=== PATIENT | male | born 1955 | race Caucasian/White ===

== ENCOUNTER 2022-03-01 08:09 | Day surgery (SDC) | payer BC, SELFPAY ==
--- NOTE | 2022-02-28 10:23 | HO.ANESPROP2 ---
Documented by User: Nicolle Dumont NP 02/28/22 10:24 HPI - Anesthesia Eval Consult details Narrative: 66yo M for Upper Endoscopy [facility] Past Medical History Medical History Kothari esophagus Colon polyps Lumbosacral disc disease Seasonal allergic rhinitis Surgical History Surgical History History of colonoscopy History of esophagogastroduodenoscopy (EGD) History of hernia repair History of shoulder surgery History of tonsillectomy and adenoidectomy Social History Social History Patient Tobacco Use Status: Never used Tobacco Are you DNR?: No Advance Directives: No Advance Directives Information Provided: Yes Recently lost weight without trying: No Nutrition Risks: No Nutritional Risk Poor oral hygiene: No Meds Allergies Allergy/AdvReac Type Severity Reaction Status Date / Time No Known Allergies Allergy Verified 02/28/22 09:30 Home Medications Medication Instructions Recorded Confirmed Last Taken Type calcium 1 tab PO DAILY 02/28/22 02/28/22 02/28/22 History esomeprazole magnesium 20 mg 20 mg PO DAILY 02/28/22 02/28/22 02/28/22 History capsule,delayed release (Nexium) fluticasone propionate 110 1 puff inhalation DAILY 02/28/22 02/28/22 03/01/22 History mcg/actuation HFA aerosol inhaler multivitamin 1 tab PO DAILY 02/28/22 02/28/22 02/28/22 History Exam Exam Date and Time: February 28, 2022 102 Assessment and Plan Assessment Anesthesia Assessment: Chart Reviewed Documented by User: Vaishali Soler MD 03/01/22 10:42 [facility] Past Medical History Medical History Kothari esophagus Colon polyps Lumbosacral disc disease Seasonal allergic rhinitis Surgical History Surgical History History of colonoscopy History of esophagogastroduodenoscopy (EGD) History of hernia repair History of shoulder surgery History of tonsillectomy and adenoidectomy History of Problems with Anesthesia: No Social History Social History Patient Tobacco Use Status: Never used Tobacco Are you DNR?: No Advance Directives: No Advance Directives Information Provided: Yes Recently lost weight without trying: No Nutrition Risks: No Nutritional Risk Poor oral hygiene: No Meds Allergies Allergy/AdvReac Type Severity Reaction Status Date / Time No Known Allergies Allergy Verified 02/28/22 09:30 Home Medications Medication Instructions Recorded Confirmed Last Taken Type calcium 1 tab PO DAILY 02/28/22 02/28/22 02/28/22 History esomeprazole magnesium 20 mg 20 mg PO DAILY 02/28/22 02/28/22 02/28/22 History capsule,delayed release (Nexium) fluticasone propionate 110 1 puff inhalation DAILY 02/28/22 02/28/22 03/01/22 History mcg/actuation HFA aerosol inhaler multivitamin 1 tab PO DAILY 02/28/22 02/28/22 02/28/22 History Exam Airway Mallampati Class: II TM Dist: >3cm Neck ROM: Full Loose/Missing/Broken Teeth: No Heart: RRR Lungs: CTA Assessment and Plan Assessment Anesthesia Assessment: Anesthesia Plan Discussed Final Anesthetic Review History of Problems with Anesthesia: No NPO: Yes ASA Class: II Final Preanesthetic Review: Meds/Allgs Chart Reviewed, Consent Obtained/Reviewed and Anes Risks/Benef Reviewed Patient Risk: Low Procedure Risk: Intermediate Anesthetic Plan Anesthetic Plan: MAC: Disposition: Standard PACU
[2022-03-01 08:17] VITALS: BMI 28.5
[2022-03-01 08:31] VITALS: BP 151/93; PULSE 54; RESP 18; TEMP 36.1; O2SAT 98
[2022-03-01] MEDS: Lactated Ringers 1,000 ML 100 ML IVCONT (08:43)
[2022-03-01 08:49] LABS: COVID-19 Test Negative (Negative)
--- NOTE | 2022-03-01 09:46 | MHC.SHP ---
Pre-Procedural Eval Section A Date of Service: 03/01/22 The patient is an INPATIENT: No Changes since office visit: No Cold of Flu in the past 2 weeks, No New Medical Problems, No Changes in Medication and No Patient answered all questions The History & Physical has been completed within 30 days and I have reviewed it.: Yes Section B Chief Complaint: Kothari's esophagus without dysplasia Allergies: Allergies Allergy/AdvReac Type Severity Reaction Status Date / Time No Known Allergies Allergy Verified 02/28/22 09:30 Plan I have reviewed the history and physical and performed a pertinent physical examination on my patient. No changes have occurred unless specified.
--- NOTE | 2022-03-01 10:14 | PM.OP ---
Brief Operative Note Date of Service: 03/01/22 Pre-op diagnosis: barretts Post-op diagnosis: same Procedure: upper endoscopy Surgeon: Smooth Ruiz Anesthesia: MAC Was an Director Of Employee Development used for this Procedure?: No Estimated blood loss (mL): 2 Pathology: other Condition: stable Disposition: PACU
[2022-03-01 10:15] VITALS: BP 90/60; PULSE 53; RESP 20; TEMP 36.2; O2SAT 99
[2022-03-01 10:30] VITALS: BP 115/73; PULSE 49; RESP 18; TEMP 36.2; O2SAT 98
--- NOTE | 2022-03-01 11:04 | OP_ITS ---
SURGEON: Smooth Ruiz MD PREOPERATIVE DIAGNOSIS: POSTOPERATIVE DIAGNOSIS: PROCEDURE PERFORMED: EGD with biopsy INDICATIONS: Barretts esophagus ESTIMATED BLOOD LOSS: COMPLICATIONS: ANESTHESIA: MAC ASSISTANTS: SPECIMENS: DESCRIPTION OF PROCEDURE: History and physical performed. The procedure was performed on 03/01/22. Informed consent was obtained. The patient was placed in the left lateral decubitus position. The Olympus video gastroscope was introduced into the esophagus, stomach, and duodenum. Examination was performed. The scope was removed. He tolerated the procedure well and was taken to recovery area in stable condition. FINDINGS: Esophagus: The esophagus showed no esophagitis. There was an irregular EG junction. There were no raised lesions or ulcerated areas. Biopsies were obtained from the EG junction. Stomach: The stomach showed no evidence of masses or ulcers. There were several benign-appearing gastric polyps measuring less than 10 mm in the body. Two of these were biopsied. Duodenum: The bulb and second portion were normal. IMPRESSION: Kothari esophagus. RECOMMENDATION: Follow up the biopsy results. MD LING Smith/QUINL / [id number] MTDD
== END 2022-03-01 11:14 | disposition home or self-care (01) ==
PROVIDERS: Anesthesiology; PCP Family Medicine; Visit Provider Internal Medicine Gastroenterology
PROC: 0DJ08ZZ Inspection of Upper Intestinal Tract, Via Natural or Artificial Opening Endoscopic (ICD-10-PCS; CPT 43235; principal; 2022-03-01 09:30)
DX: K22.70 Barrett's esophagus without dysplasia (principal); K31.7 Polyp of stomach and duodenum; K21.9 Gastro-esophageal reflux disease without esophagitis; J30.2 Other seasonal allergic rhinitis; Z79.51 Long term (current) use of inhaled steroids; Z79.899 Other long term (current) drug therapy; Z20.822 Contact with and (suspected) exposure to COVID-19
CPT/HCPCS: 43239; 87635; 88305; 88342

== ENCOUNTER 2024-04-06 07:15 | Day surgery (SDC) | payer BC, SELFPAY ==
[2024-04-02 12:33] VITALS: BMI 28.4
[2024-04-06 07:56] VITALS: BP 159/84; PULSE 61; RESP 18; TEMP 36.7; O2SAT 99
[2024-04-06] MEDS: Lactated Ringers 1,000 ML 100 ML IVCONT (08:09)
--- NOTE | 2024-04-06 08:30 | HO.ANESPROP2 ---
Documented by User: Nicolle Dumont NP 04/05/24 08:27 HPI - Anesthesia Eval Consult details Narrative: 68yo M for Colonoscopy [facility] Past Medical History Medical History Cataracts, both eyes Hearing loss Lumbosacral disc disease Colon polyps Kothari esophagus Seasonal allergic rhinitis Surgical History Surgical History History of tonsillectomy and adenoidectomy History of shoulder surgery History of hernia repair History of esophagogastroduodenoscopy (EGD) History of colonoscopy History of Problems with Anesthesia: No Social History Social History (Updated 04/02/24 @ 12:32 by Priyanka Watkins RN) Household Members: Spouse Are you a primary intensive care medicine specialist to a significant other at home: No Do you presently have visiting nurse or other home services: No Patient Tobacco Use Status: Never used Tobacco Use of substances other than those prescribed or required for medical reasons: No Have you been hit, kicked, punched, or otherwise hurt by someone within the past year? If so, by whom?: No Are you DNR?: No Advance Directives: No Advance Directives Information Provided: Yes Recently lost weight without trying: No Nutrition Risks: No Nutritional Risk Meds Allergies Allergy/AdvReac Type Severity Reaction Status Date / Time No Known Allergies Allergy Verified 04/06/24 07:40 Home Medications ?Medication ?Instructions ?Recorded ?Confirmed ?Last Taken ?Type esomeprazole magnesium 20 mg 20 mg PO DAILY 02/28/22 04/02/24 02/28/22 History capsule,delayed release (Nexium) fluticasone propionate 110 1 puff inhalation DAILY 02/28/22 04/02/24 03/01/22 History mcg/actuation HFA aerosol inhaler multivitamin 1 tab PO DAILY 02/28/22 04/02/24 02/28/22 History calcium carbonate (Calcium 600) 600 mg PO DAILY 04/02/24 04/02/24 Unknown History Exam Height,Weight and Vital Signs: Height 5 ft 6 in Weight 79.832 kg Assessment and Plan Assessment Anesthesia Assessment: Chart Reviewed Final Anesthetic Review History of Problems with Anesthesia: No Documented by User: Radha Dewitt DO 04/06/24 08:32 [facility] Past Medical History Medical History Cataracts, both eyes Hearing loss Lumbosacral disc disease Colon polyps Kothari esophagus Seasonal allergic rhinitis Family History Family history of problems with anesthesia: No Surgical History Surgical History History of tonsillectomy and adenoidectomy History of shoulder surgery History of hernia repair History of esophagogastroduodenoscopy (EGD) History of colonoscopy History of Problems with Anesthesia: No Social History Social History (Updated 04/02/24 @ 12:32 by Priyanka Watkins RN) Household Members: Spouse Are you a primary intensive care medicine specialist to a significant other at home: No Do you presently have visiting nurse or other home services: No Patient Tobacco Use Status: Never used Tobacco Use of substances other than those prescribed or required for medical reasons: No Have you been hit, kicked, punched, or otherwise hurt by someone within the past year? If so, by whom?: No Are you DNR?: No Advance Directives: No Advance Directives Information Provided: Yes Recently lost weight without trying: No Nutrition Risks: No Nutritional Risk Meds Allergies Allergy/AdvReac Type Severity Reaction Status Date / Time No Known Allergies Allergy Verified 04/06/24 07:40 Home Medications ?Medication ?Instructions ?Recorded ?Confirmed ?Last Taken ?Type esomeprazole magnesium 20 mg 20 mg PO DAILY 02/28/22 04/02/24 02/28/22 History capsule,delayed release (Nexium) fluticasone propionate 110 1 puff inhalation DAILY 02/28/22 04/02/24 03/01/22 History mcg/actuation HFA aerosol inhaler multivitamin 1 tab PO DAILY 02/28/22 04/02/24 02/28/22 History calcium carbonate (Calcium 600) 600 mg PO DAILY 04/02/24 04/02/24 Unknown History Exam Exam Date and Time: 04/06/24 0830 Height,Weight and Vital Signs: Vital Signs Temperature 98.1 F 04/06/24 07:56 Pulse Rate 61 04/06/24 07:56 Respiratory Rate 18 04/06/24 07:56 Blood Pressure 159/84 H 04/06/24 07:56 Pulse Oximetry 99 04/06/24 07:56 Oxygen Delivery Method Room Air 04/06/24 07:56 Temperature 98.1 F 04/06/24 07:56 Pulse Rate 61 04/06/24 07:56 Respiratory Rate 18 04/06/24 07:56 Blood Pressure 159/84 H 04/06/24 07:56 Pulse Oximetry 99 04/06/24 07:56 Oxygen Delivery Method Room Air 04/06/24 07:56 Height 5 ft 6 in Weight 79.832 kg Airway Mallampati Class: II TM Dist: >3cm Neck ROM: Full Loose/Missing/Broken Teeth: No (patient denies any loose or broken teeth) Heart: S1S2 Lungs: CTAB Assessment and Plan Assessment Anesthesia Assessment: Anesthesia Plan Discussed and Chart Reviewed Final Anesthetic Review Family History of Problems with Anesthesia: No History of Problems with Anesthesia: No NPO: Yes ASA Class: II Final Preanesthetic Review: No Changes in Pt Med Stat, Meds/Allgs Chart Reviewed, Consent Obtained/Reviewed and Anes Risks/Benef Reviewed Patient Risk: Low Procedure Risk: Low Anesthetic Plan Anesthetic Plan: MAC: and Agree w/ Assess. and Plan Disposition: Standard PACU
--- NOTE | 2024-04-06 08:33 | P.HPSUR_ITS ---
Pre-Procedural Eval Section A - 24 Hr Update-Section A only Date of Service: 04/06/24 Section B - Complete if H&P > 30 days Chief Complaint: Encounter for screening for malignant neoplasm of Details of Present Illness: see H&P no changes Relevant Family History (Specify if Yes): No Relevant Social History: None Present Medications: see Short Stay Collaborative assessment Medical History: No relevant PMH History of Previous Operations: No relevant previous surgery Allergies: Allergies Allergy/AdvReac Type Severity Reaction Status Date / Time No Known Allergies Allergy Verified 04/06/24 07:40 Review of Systems Sugical H&P ROS: Negative: Constitution, Cardiovascular, Respiratory, Neurological, Psychiatric, Hem-Onc, Allergic/Immunologic, Gastrointestinal, Genitourinary, Musculoskeletal, Integumentary, Endocrine and Eyes/Ears/No se/Throat Exam Surgical H&P Exam: Normal: HEENT, Normal: Heart, Normal: Lungs, Normal: Extremities, Normal: Abdomen, Normal: Skin and Normal: Neurological Plan Diagnosis/Plan: Unchanged I have reviewed the history and physical and performed a pertinent physical examination on my patient. No changes have occurred unless specified. Time Spent With Patient Time: Total time managing care of this patient today ____ minutes.
[2024-04-06 09:04] VITALS: BP 87/54; PULSE 53; RESP 16; TEMP 36.2; O2SAT 96
--- NOTE | 2024-04-06 09:13 | OP_ITS ---
DATE OF SERVICE: 04/06/2024 SURGEON: Smooth Ruiz MD INDICATIONS: Colon cancer screening and prior history of adenomatous colon polyps. PREOPERATIVE DIAGNOSIS: POSTOPERATIVE DIAGNOSIS: PROCEDURE PERFORMED: Colonoscopy to the terminal ileum. ESTIMATED BLOOD LOSS: COMPLICATIONS: ANESTHESIA: Monitored anesthesia care. ASSISTANTS: SPECIMENS: DESCRIPTION OF PROCEDURE: A history and physical was performed. The risks and benefits of the procedure were explained to the patient. Informed consent was obtained. The patient was placed in the left lateral decubitus position. A digital rectal exam was performed and was found to be normal. The Olympus pediatric video colonoscope was introduced into the rectum and advanced to the cecum. The cecum was identified by transillumination, palpation, and identification of ileocecal valve, examination was performed. The scope was removed. He tolerated the procedure well and was returned to recovery area in stable condition. FINDINGS: The terminal ileum was normal. The visualized colonic mucosa was normal. The quality of the prep was good. There was very mild sigmoid diverticulosis. Retroflexed examination showed some moderate-sized internal hemorrhoids. No polyps were identified. IMPRESSION: Normal colonoscopy. RECOMMENDATIONS: 1. Follow up as needed. 2. Repeat colonoscopy is recommended in 10 years for average-risk individuals. MD LING Smith/KYLEE / [id number]
[2024-04-06 09:19] VITALS: BP 98/65; PULSE 49; RESP 16; TEMP 36.2; O2SAT 99
--- OUTSIDE RECORDS SUMMARY | 2024-04-07 18:32 | XMS_ITS | Continuity of Care Document ---
Author Organization [facility] Address [address] [place] [address]- Care Team Providers Care Program Admin Name Role Phone Irving CAMPA, Shannon Hernandez Primary Care Physician [phone] Encounter [facility] NBR [id number] Date(s): 03/03/24 - 03/10/24 [facility] [address] [place] [id number]- Attending Physician: Shannon Villatoro MD Referring Physician: Joselito Mendoza MD Encounter Type: Office Visit Allergies, Adverse Reactions, Alerts Substance Criticality Severity Reaction Reaction Severity Status Pollen Active Immunizations Given and Recorded Vaccine Date Status Refusal Reason influenza virus vaccine, inactivated 03/01/24 Zaheer rded influenza virus vaccine, inactivated 03/06/23 Zaheer rded influenza virus vaccine, inactivated 1 02/18/18 Gi savanna influenza virus vaccine, inactivated 2 02/03/17 Gi savanna influenza virus vaccine, inactivated 02/06/16 Give n influenza virus vaccine, inactivated 03/06/15 Give n influenza virus vaccine, inactivated 02/16/14 Zaheer rded influenza virus vaccine, inactivated 02/15/13 Zaheer rded SARS-CoV-2(COVID-19)mRNA-LNP vac([id number]) 03/01/24 Recorded SARS-CoV-2(COVID-19)mRNA-LNP vac([id number]) 02/15/23 Recorded pneumococcal 23-valent vaccine 3 10/22/23 Given pneumococcal 23-valent vaccine 05/20/16 Given tetanus/diphtheria/pertussis, acel(Tdap) 10/22/23 Recorded RSV vaccine, preF A-preF B, recombinant 01/31/23 R ecorded [id number] 12y+ bivalent booster vax 11/20/22 Recorded [id number] 12y+ bivalent booster vax 03/07/22 Recorded pneumococcal 13-valent vaccine 4 10/10/22 Given pneumococcal 13-valent vaccine 05/19/15 Given SARS-CoV-2 mRNA ([id number]) vax 09/26/21 Recorded SARS-CoV-2 (COVID-19) mRNA BNT-162b2 vac 04/02/21 Recorded SARS-CoV-2 (COVID-19) mRNA BNT-162b2 vac 08/16/20 Recorded SARS-CoV-2 (COVID-19) mRNA BNT-162b2 vac 07/26/20 Recorded zoster vaccine, inactivated 05/05/20 Recorded zoster vaccine, inactivated 02/18/20 Recorded Influenza Virus Vaccine (oldterm) 02/08/20 Recorde d Influenza Virus Vaccine (oldterm) 02/26/19 Recorde d Adacel (Tdap) (oldterm) 5 09/29/17 Given Tetanus Toxoid 05/12/06 Recorded 1Result Comment: [02/18/2018] [facility] [id number] 2Result Comment: [02/03/2017] [facility] [id number] 3Result Comment: [facility] [id number] 4Result Comment: [facility] [id number] 5Result Comment: [09/29/2017] [facility]: [id number] Medications Calcium 600 +D By Mouth, 0 Refills, Maintenance, 05/20/16 8:46:04 AM EST Start Date: 05/20/16 Status: Ordered Repeat number: 1 Daily Multi 1 tablet, By Mouth, Daily, 0 Refills, Maintenance, 11/29/15 8:23:23 AM EDT Start Date: 11/29/15 Status: Ordered Repeat number: 1 Fluticasone Nasal USE 2 SPRAYS IN EACH NOSTRIL ONCE DAILY, 04/22/13 5:00:00 AM EST Start Date: 04/22/13 Status: Ordered Repeat number: 1 Metamucil 3.4 gm/5.2 gm oral powder for reconstitution = 3.4 Gm, By Mouth, Daily, 0 Refills, Maintenance, 10/22/23 7:41:00 AM EDT, Partial fill upon patient request if the prescription is for a schedule II opioid drug. Start Date: 10/22/23 Status: Ordered Repeat number: 1 naproxen 500 mg oral delayed release tablet TAKE 1 TABLET TWICE DAILY NEEDED., 04/22/13 5:00:00 AM EST Start Date: 04/22/13 Status: Ordered Repeat number: 1 NexIUM OTC 20 mg oral delayed release capsule 1 capsule = 20 mg, By Mouth, Daily, 0 Refills, Maintenance, 05/19/15 8:53:13 AM EST, brand name only Start Date: 05/19/15 Status: Ordered Repeat number: 1 Problem List Condition Confirmation Course Effective Dates Status H ealth Status Informant Kothari's esophagus Confirmed Active Chronic hyperglycemia Confirmed Active Disc degeneration, lumbosacral Confirmed Active Palmar fascial fibromatosis [dupuytren] Confirmed Active Vital Signs Most recent to oldest [Reference Range]: 1 Height 168 cm (03/03/24 12:45 PM) Weight 80.0 kg (03/03/24 12:45 PM) Oxygen Saturation [94-100 %] 97 % (03/03/24 12:45 PM) Pulse Rate [55-90 bpm] 55 bpm (03/03/24 12:45 PM) Body Mass Index [18.5-24.99 kg/m2] 28.34 kg/m2 *H* (03/03/24 12:45 PM) Blood Pressure [90-138/55-84 mm Hg] 127/ 69mm Hg (03/03/24 12:45 PM) Temperature [96.8-100.4 DegF] 96.6 DegF *L* (03/03/24 12:45 PM) Mode of Delivery (Oxygen) Room air (03/03/24 12:45 PM) Blood pressure sites Arm, left (03/03/24 12:45 PM) Temperature Route Temporal (03/03/24 12:45 PM) Weight Obtained Via Standing scale (03/03/24 12:45 PM) Social History Social History Type Response Smoking Status Never (less than 100 in lifetime); Tobacco user in household: No;Never; Previous treatment: None; Interested in cessation: No entered on: 09/30/18 Sex Sex Representation Male (finding) Note * Shawnee Craig: PERFORM Event Display: Patient Education/Instruction Authored Date: [id number] Ambulatory Adult Visit Summary [facility] [address] [address] Name: LALO VEGA : 1955?? Visit: 03/03/2024 12:37?? Ambulatory Visit Instructions ?? Your Care Team Primary Care Provider Shannon Villatoro MD? This Visit Provider Shannon Villatoro MD Vitals Signs Temperature:??96.6 DegF??Low Height: 168 cm Pulse Rate: 55 bpm Weight: 80 kg Systolic Blood Pressure: 127 mm Hg Body Mass Index:??28.34 kg/m2??High Diastolic Blood Pressure: 69 mm Hg Body surface area: 1.93 Oxygen Saturation: 97 % ?? Medications The list below reflects the information in our records and provided by you today along with any changes made during this visit. Please continue your medications until treatment is completed or stopped by your provider. If this is different from the information you have or there are other questions,please contact the prescribing provider. What How Much When Instructions Unchanged Calcium And Vitamin D Combination (Calcium 600 +D) Oral Unchanged Esomeprazole (NexIUM OTC 20 mg oral delayed release capsule) 1 capsule Oral Daily Unchanged Fluticasone Nasal USE 2 SPRAYS IN EACH NOSTRIL ONCE DAILY ?? Unchanged Multivitamin With Minerals (Daily Multi) 1 tab(s) Oral Daily Unchanged Naproxen (naproxen 500 mg oral delayed release tablet) TAKE 1 TABLET TWICE DAILY NEEDED. ?? Unchanged Psyllium (Metamucil 3.4 gm/ 5.2 gm oral powder for reconstitution) 3.4 gram Oral Daily Medications and Immunizations Administered Medications Given During Visit No medications given during this visit.?? Allergies (NKA means No Known Allergies) Pollen Common Emergency Awareness Tips IS IT A STROKE? Act FAST and Check for these signs: FACE Does the face look uneven? ARM Does one arm drift down? SPEECH Does their speech sound strange? TIME Call at any sign of stroke ?? Heart Attack Signs Chest discomfort: Most heart attacks involve discomfort in the center of the chest and lasts more than a few minutes, or goes away and comes back. It can feel like uncomfortable pressure, squeezing, fullness or pain. Discomfort in upper body: Symptoms can include pain or discomfort in one or both arms, back, neck, jaw or stomach. Shortness of breath: With or without discomfort. Other signs: Breaking out in a cold sweat, nausea, or lightheaded. Remember, MINUTES DO MATTER. If you experience any of these heart attack warning signs, call to get immediate medical attention! ?? Smoking can increase your chances of developing chronic health problems and can cause harmful effects to other family members in your house. If you smoke, you are strongly encouraged to quit. Please call [facility] at [phone] or [phone] ([phone]) or log in to [email or web address] for referrals to smoking cessation programs. ?? The National Suicide Prevention Hotline is available 18/11 if you or someone you know needs to find a reason to keep living. By calling 4-060-688-R[employer] V[employer] (6628) you'll be connected to a skilled, trained counselor at a crisis center in your area. [facility] Portal You can view and manage your care through the patient portal or by using a health care ninfa of your choosing. [employer] is a website that allows you to securely view your medical information including your hospital discharge summary, office visit summaries, medications and follow-up visits. You can also request appointments, renew medications, and request access to your medical information using a health care ninfa of your choosing, or just ask a question. You can enroll at [email or web address] or register during your next office visit. [facility], in keeping with [facility] guidance, no longer requires face masks for staff, patientsor visitors in most situations. Similiar to time spent indoors at other locations, there is the chance that you were exposed to repiratory viruses during your time with us (such as flu or COVID-19). If you develop symptoms concerning for a viral respiratory infection, please seek testing (and treatment if indicated) from your medical provider or home test kit. ?? Disclaimer: The information provided is of a general nature and is intended to be used in conjunction with the recommendations and advice of your health care practitioner. Every effort has been made to ensure that the information provided is accurate and complete at the time it is provided to you however, as your needs change, or, as new information becomes available, different or additional instructions may be required. ?? If you have questions, please consult with your primary care provider or pharmacist, as appropriate. This information is not intended to serve as substitution for assessment and evaluation by a qualified health care provider. If you do not have a primary care provider, you may find a [facility] provider by calling [facility] at [phone]. Patient Care team information Care Team Personnel Name: Shannon Villatoro MD Position: [facility] Physician - Primary Care Member Role: PCP Address: [address] [place] [address] Telecom: Care Team Related Persons Name: ROSALBA GARSIA Insurance Providers Guarantor name: [facility] Information #: 1 Payer: [employer]MO [employer] Member Number: [id number] Policy Number: NA Group Number: [id number] Health Plan Information #: 2 Payer: HMO [employer] Member Number: [id number] Policy Number: NA Group Number: NA
--- OUTSIDE RECORDS SUMMARY | 2024-04-07 18:32 | XMS_ITS | Continuity of Care Document ---
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 Name Role Phone Irving CAMPA, Shannon M Primary Care Physician Encounter [facility] Date(s): 03/03/24 - 04/02/24 [facility] [address] [place] [address]- Attending Physician: Steven Greenfield Admitting Physician: AdmSteven maher Referring Physician: AdmtrSteven Encounter Type: Triage Allergies, Adverse Reactions, Alerts Substance Criticality Severity [...] virus vaccine, inactivated 02/15/13 Zaheer rded SARS-CoV-2(COVID-19)mRNA-LNP vac([id number]) 03/01/24 Recorded SARS-CoV-2(COVID-19)mRNA-LNP vac([id number]) 02/15/23 Recorded pneumococcal 23-valent vaccine 3 10/22/23 Given pneumococcal 23-valent vaccine 05/20/16 Given tetanus/diphtheria/pertussis, acel(Tdap) 10/22/23 Recorded RSV vaccine, preF A-preF B, recombinant 01/31/23 R ecorded [id number] 12y+ bivalent booster vax 11/20/22 Recorded [id number] 12y+ bivalent booster vax 03/07/22 Recorded pneumococcal 13-valent vaccine 4 10/10/22 Given pneumococcal 13-valent vaccine 05/19/15 Given SARS-CoV-2 mRNA (vksurpt-gfgv-kumaw) vax 09/26/21 Recorded SARS-CoV-2 (COVID-19) mRNA BNT-162b2 vac 04/02/21 Recorded SARS-CoV-2 (COVID-19) mRNA BNT-162b2 vac 08/16/20 Recorded SARS-CoV-2 (COVID-19) mRNA BNT-162b2 vac 07/26/20 Recorded zoster vaccine, inactivated 05/05/20 Recorded zoster vaccine, inactivated 02/18/20 Recorded Influenza Virus Vaccine (oldterm) 02/08/20 Recorde d Influenza Virus Vaccine (oldterm) 02/26/19 Recorde d Adacel (Tdap) (oldterm) 5 09/29/17 Given Tetanus Toxoid 05/12/06 Recorded 1Result Comment: [02/18/2018] [facility] [id number] 2Result Comment: [02/03/2017] [facility] [phone] 3Result Comment: [facility] [id number] 4Result Comment: formerly [facility] [id number] 5Result Comment: [09/29/2017] 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 Social History Social History Type Response Smoking Status Never (less than 100 in lifetime); Tobacco user in household: No;Never; Previous treatment: None; Interested in cessation: No entered on: 09/30/18 Sex Sex Representation Male (finding) Patient Care team information Care Team Personnel Name: Irving CAMPA, Shannon Hernandez Position: [facility] Physician - Primary Care Member Role: PCP Address: [address] [place] [address] [place] [address]- Telecom: Care Team Related Persons Name: ROSALBA GARSIA Insurance Providers Guarantor name: LALO [facility] Plan Information #: 1 Payer: O [employer]WORK Member Number: NA Policy Number: NA Group Number: NA
--- OUTSIDE RECORDS SUMMARY | 2024-04-07 18:32 | XMS_ITS ---
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
--- OUTSIDE RECORDS SUMMARY | 2024-04-07 18:33 | XMS_ITS | Patient Health Record ---
Author Organization [facility] Address [address] [place] [address] Care Team Providers Care High School Coordinator Name Role Phone Irving CAMPA, Shannon Primary Care Provider Unavailab Smooth Noel Jr Unavailable ALLERGIES No Known Allergies REASON FOR REFERRAL Referring Provider First Name Shannon Referring Provider Last Name Irving Referring Provider Speciality Internal M edicine Referred Organization [facility] Referred Provider Smooth Ruiz Jr Referred Address [address],[place], [place],[address], Referred Provider Specialty Gastroentero logy General Notes Leilani Lerma 024 04:15:22 PM EDT > requested an o blue referral from Dr. Schaffer's office for visit with Dr. Ruiz on 03-08-2024 (said 01-31-2024) [phone] Referral Priority Routine MEDICATIONS Medication SIG (Take, Route, Frequency, Duration) Notes Start Date End Date Status MiraLax (colon prep) 17 GM/SCOOP mixed with Gatorade or Crystal Light Orally begin at 5:00 p.m. the day before the procedure for 1 day 03/08/2024 Active NexIUM 20 MG 1 capsule Orally Onc e a day for 30 day(s) Active Multivitamin Active Fluticasone Propionate HFA 110 MCG/ACT 1 puff in each nostril Inhalation once a day Active Metamucil 0.36 GM as directed Orally Active Calcium Active IMMUNIZATIONS Vaccine Route Administration Date Status Comme nts Influenza Unknown 01/23/2022 Administered Influenza Unknown 02/10/2024 Administered SOCIAL HISTORY Tobacco Use: Social History Observation Description Date Details (start date - stop date) Never Smoker NA - NA Sex Assigned At : Social History Observation Description Sex Assigned At Unknown Tobacco Use/Smoking Question Answer Notes Patient is a nonsmoker Alcohol Screen Question Answer Notes Did you have a drink contain ing alcohol in the past year? Yes How often did you have a dri nk containing alcohol in the past year? 4 or more times a week (4 points) How many drinks did you have on a typical day when you were drinking in the past year? 1 or 2 drinks (0 point) Points 4 Interpretation Positive PROBLEMS Problem Type ICD Code Onset Dates Problem Status W/U Status Risk SNOMED Code Notes Problem Kothari's esophagus without dysplasia (K22.70) Active confirmed 373572745 Problem Colon cancer screening (Z12.11) Active confirmed 117161906 Problem Kothari esophagus (K22.70) Active confirmed Kothari esophagus (811411213) VITAL SIGNS Temperature 97.9 degrees Fahrenheit 03/08/2024 Blood pressure diastolic 00 mm Hg 03/08/2024 Height 66 in 03/08/2024 Blood pressure systolic 000 mm Hg 03/08/2024 Weight 176 lb 4 oz lbs 03/08/2024 BMI 28.44 kg/m2 03/08/2024 Encounters Encounter Location Date Provider Diagnosis [facility] Outpatient [address] [place], [place] [phone] 04/06/2024 Smooth Ruiz Jr [facility] [address] [place] [address] 03/08/2024 Smooth Ruiz Jr Colon cancer screening Z12.11 and Kothari's esophagus without dysplasia K22.70 ASSESSMENTS Encounter Date Diagnosis Assessment Notes Treatment Notes Treatment Clinical Notes 03/08/2024 Colon cancer screening (ICD-10 - Z12.11) Colonoscopy material was printed 03/08/2024 Kothari's esophagus without dysplasia (ICD-10 - K22.70) PLAN OF TREATMENT Future Test Test Name Order Date UPPER GI ENDOSCOPY 01/30/2022 COLONOSCOPY 03/08/2024 Insurance Providers Payer Name Payer Address Payer Phone Subscriber Number Group Number Insured Name Patient Relationship to Insured Coverage Start Date Coverage End Date [facility] [employer] [facility] [address] [place] [address] [id number] LALO VEGA Self - patient is the insured MEDICAL (GENERAL) HISTORY Medical History History ICD Code Seasonal allergic rhinitis Kothari's esophagus, EGD , negative for intestinal metaplasia, five-year followup Colon polyps, colonoscopy 01/27/18, small tubular adenoma, five-year followup Lumbosacral disc disease Hearing loss Cataracts Surgical History Surgery Date(Month/Year) hernia repair 1989' right shoulder surgery tonsillectomy and adenoidectomy 1968
--- OUTSIDE RECORDS SUMMARY | 2024-04-07 18:33 | XMS_ITS ---
Author Organization [facility] Address [address] [place] [address] Care Team Providers Care Shovel Engineer Name Role Phone Shannon Villatoro MD Primary Care Provider Unavailab Smooth Noel Jr Unavailable ALLERGIES No Known Allergies REASON FOR VISIT Patient presents today for a colon screening MEDICATIONS Medication SIG (Take, Route, Frequency, Duration) [...] GM as directed Orally Active Calcium Active SOCIAL HISTORY Tobacco Use: Social History Observation [...] drinks (0 point) Points 4 Interpretation Positive VITAL SIGNS BMI 28.44 kg/m2 03/08/2024 Blood pressure systolic 000 mm Hg 03/08/20 24 Blood pressure diastolic 00 mm Hg 024 Height 66 in 03/08/2024 Temperature 97.9 degrees Fahrenheit 03/08/20 24 Weight 176 lb 4 oz lbs 03/08/2024 Encounters Encounter Location Date Provider Diagnosis [facility] [address] [place] [address] 03/08/2024 Smooth Ruiz Jr Colon cancer screening Z12.11 and Kothari's esophagus without dysplasia K22.70 ASSESSMENTS Encounter Date Diagnosis Assessment Notes Treatment Notes Treatment Clinical Notes 03/08/2024 Colon cancer screening (ICD-10 - Z12.11) Colonoscopy material was printed 03/08/2024 Kothari's esophagus without dysplasia (ICD-10 - K22.70) PLAN OF TREATMENT Medication Medication Name Sig Start Date Stop Date Notes MiraLax (colon prep) 17 GM/SCOOP mixed with Gatorade or Crystal Light Orally begin at 5:00 p.m. the day before the procedure for 1 day 03/08/2024 Treatment Notes Assessment Notes Colon cancer screening Colonoscopy mater ial was printed Future Test Test Name Order Date COLONOSCOPY 03/08/2024 Next Appt Details Follow Up: 1 Year, Reason: Progress Notes * Examination Category Sub-Category Detail Notes General Examination GENERAL APPEARANCE: in no ac emmonak distress HEAD: normocephalic EYES: sclera non-icteric NECK/THYROID: no lymphadenopathy HEART: S1, S2 normal, no mu rmurs CHEST: normal shape and exp ansion LUNGS: clear to auscultatio n bilaterally ABDOMEN: soft, nontender, non distended, bowel sounds present, no organomegaly SKIN: anicteric EXTREMITIES: no clubbing, cyanosi s, or edema PSYCH: cognitive function i ntact ORAL CAVITY: mucosa moist
== END 2024-04-06 09:47 | disposition home or self-care (01) ==
PROVIDERS: PCP Family Medicine; Visit Provider Internal Medicine Gastroenterology
PROC: 0DJD8ZZ Inspection of Lower Intestinal Tract, Via Natural or Artificial Opening Endoscopic (ICD-10-PCS; CPT 45378; principal; 2024-04-06 09:10)
DX: Z12.11 Encounter for screening for malignant neoplasm of colon (principal); Z86.0101 Personal history of adenomatous and serrated colon polyps; K57.30 Diverticulosis of large intestine without perforation or abscess without bleeding; K64.8 Other hemorrhoids; K22.70 Barrett's esophagus without dysplasia; K21.9 Gastro-esophageal reflux disease without esophagitis; J30.2 Other seasonal allergic rhinitis; M51.379 Other intervertebral disc degeneration, lumbosacral region without mention of lumbar back pain or lower extremity pain; H91.90 Unspecified hearing loss, unspecified ear; Z79.51 Long term (current) use of inhaled steroids; Z79.899 Other long term (current) drug therapy; Z98.890 Other specified postprocedural states
CPT/HCPCS: G0105; J2003; J2704